=== PATIENT | female | born 1985 | race Caucasian/White ===

== ENCOUNTER 2016-12-15 16:56 | Emergency (ER) | payer OTHER ==
[2016-12-15 18:23] VITALS: BP 112/59; PULSE 88; TEMP 98; BMI 20.5
--- NOTE | 2016-12-15 18:38 | PDOC ---
History of Present Illness - General Chief Complaint: Laceration Stated Complaint: LACERATION Time Seen by Provider: 12/15/16 18:36 History Source: Patient, Care Provider Exam Limitations: No Limitations - History of Present Illness Initial Comments: 12/15/16 18:37 patient care documented on downtime forms 12/15/16 18:37 Past History - Psycho/Social/Smoking Cessation Hx Suicidal Ideation: No Smoking History: Never smoked *Physical Exam - Vital Signs Last Vital Signs Temp Pulse Resp BP Pulse Ox 98.0 F 88 18 112/59 100 12/15/16 17:00 12/15/16 17:00 12/15/16 17:00 12/15/16 17:00 12/15/16 17:00 *DC/Admit/Observation/Transfer Diagnosis at time of Disposition: Laceration Injury of head Qualifiers: Encounter type: initial encounter Qualified Code(s): S09.90XA - Unspecified injury of head, initial encounter - Discharge Dispostion Disposition: HOME Condition at time of disposition: Stable Admit: No - Patient Instructions Printed Discharge Instructions: DI for Closed Head Injury, DI for Laceration Repair Additional Instructions: DISCHARGED WITH DOWNTIME FORMS
== END 2016-12-15 18:41 | disposition home or self-care (01) ==
LOC: JER 16:56
PROC: 0HQ1XZZ Repair Face Skin, External Approach (ICD-10-PCS; principal; 2016-12-15)
DX: S01.111A Laceration without foreign body of right eyelid and periocular area, initial encounter (principal); X58.XXXA Exposure to other specified factors, initial encounter; Y93.89 Activity, other specified; Y92.199 Unspecified place in other specified residential institution as the place of occurrence of the external cause
CPT/HCPCS: 12011-25; 99281-25

== ENCOUNTER 2016-12-17 17:33 | Emergency (ER) | payer OTHER ==
[2016-12-17 17:40] VITALS: BP 99/53; PULSE 93; TEMP 98.2; BMI 21.4
--- NOTE | 2016-12-17 18:18 | PDOC ---
Suture Removal/Wound Check HPI - History of Present Illness Chief Complaint: Wound Infection Stated Complaint: R/O SUTURE INFECTION Time Seen by Provider: 12/17/16 18:17 History Source: Yes: Care Provider Exam Limitations: Yes: No Limitations Date of Last ED visit: 12/15/16 Past History - Past Medical History Home Medications: Ambulatory Orders Benztropine Mesylate [Cogentin -] 0.5 mg PO BID 12/17/16 Clonidine HCl 0.05 mg PO BID 12/17/16 Haloperidol [Haldol -] 5 mg PO TID 12/17/16 Melatonin/Pyridoxine HCl (B6) [Melatonin 3 mg Tablet] 1 each PO DAILY 12/17/16 Quetiapine Fumarate [Seroquel] 100 mg PO TID 12/17/16 Sulfamethoxazole/Trimethoprim [Bactrim Ds -] 1 tab PO BID #14 tablet 12/17/16 Temazepam [Restoril] 30 mg PO DAILY 12/17/16 Topiramate [Topamax] 100 mg PO BID 12/17/16 - Immunization History Immunizations Up to Date: Yes - Social History Smoking Status: Never smoked Medical Decision Making - Medical Decision Making A/P: 31 y/o female BIB care worker from [facility] for possible wound infection. The patient was seen here on 12/15/16 and had a laceration to her right eyebrow dermabonded. The worker states today the wound started draining yellow pus. Care worker denies fever. Wound appears slightly erythematous and edematous. No active drainage currently. Will send rx to [facility] bactrim. Instructed the care worker to return the patient to the ER with any worsening or concerning symptoms, including fever. The patient's care worker verbalizes understanding of all instructions, has no further questions and is awaiting discharge. *DC/Admit/Observation/Transfer Diagnosis at time of Disposition: Wound infection - Discharge Dispostion Disposition: HOME Condition at time of disposition: Good - Prescriptions Prescriptions: Sulfamethoxazole/Trimethoprim [Bactrim Ds -] 1 tab PO BID #14 tablet - Patient Instructions Printed Discharge Instructions: DI for Wound Infection Additional Instructions: Discharge Instructions: -A prescription was sent to [facility] for antibiotics; please take all 7 days -Return to the ER with any worsening or concerning symptoms.
== END 2016-12-17 18:40 | disposition home or self-care (01) ==
LOC: JERFT 17:33
DX: T81.4XXA Infection following a procedure, initial encounter (principal)
CPT/HCPCS: 99281-25

== ENCOUNTER 2020-05-08 12:13 | Emergency (ER) | payer OTHER | END 2020-05-08 14:43 | disposition home or self-care (01) | LOC: JER 12:13 | DX: U07.1 COVID-19 (principal) | CPT/HCPCS: 99281-25 ==

== ENCOUNTER 2024-09-06 16:33 | Emergency (ER) | payer OTHER ==
[2024-09-06 16:46] VITALS: BP 93/68; PULSE 110; RESP 18; TEMP 98; BMI 24.7
== END 2024-09-06 17:49 | disposition home or self-care (01) ==
LOC: JER 16:33
DX: R09.89 Other specified symptoms and signs involving the circulatory and respiratory systems (principal); R05.9 Cough, unspecified
CPT/HCPCS: 99283-25